=== PATIENT | male | born 1985 | race African-American/Black ===

== ENCOUNTER 2018-11-26 14:04 | Emergency (ER) | payer OTHER ==
[2014-07-06 19:58] VITALS: BP 154/84
[~2018-11-26] VITALS: Ht 182.9 cm; Wt 82.1 kg
--- NOTE | 2018-11-26 15:40 | RAD ---
3 view study of the left ankle Clinical indications: Medial left ankle pain. Heel pain. Twisting injury last PM. FINDINGS: No acute fracture or dislocation or lytic process is seen. The mortise ankle joint is intact. No plantar spur of the calcaneus is seen. Boehler's angle of the calcaneus is maintained. IMPRESSION: No acute fracture. Electronically signed by: Kang Childress MD (11/26/2018 3:37 PM) [id number]
--- NOTE | 2018-11-26 16:35 | PHYS DOC ---
Past Medical History Past Medical History: No Pertinent History Past Surgical History: Appendectomy Additional Information: 0.25 PPD Alcohol Use: None Drug Use: None Adult General Chief Complaint Chief Complaint: ANKLE PROBLEM HPI HPI 33-year-old male presents to ER for complaints of left ankle injury which happened last night at work. Patient states his boot got caught causing him to twist his left ankle. He denies falling or having any other injury. He denies any OTC meds today for pain. He reports he has been ambulatory with weight bearing on lt lower extremity but does have increased pain with walking. Review of Systems Review of Systems GI: Denies nausea, vomiting Musculoskeletal: Reports lt ankle pain Integument: Denies abrasions/bruising Neurologic: Denies focal weakness or sensory changes [] All other systems were reviewed and found to be within normal limits, except as documented in this note. Allergies Allergies Allergies Coded Allergies Type Severity Reaction Last Updated Verified No Known Drug Allergies 04/13/14 No Physical Exam Physical Exam Constitutional: Well developed, well nourished, no acute distress, non-toxic appearance. [] HENT: Normocephalic, atraumatic, oropharynx moist Eyes: Pupils equal, conjunctiva normal, no discharge. [] Neck: Normal range of motion, no tenderness, supple, no stridor. [] Cardiovascular: Heart rate regular Lungs & Thorax: Resp. equal/nonlabored Skin: Warm, dry Back: Full ROM Extremities: No cyanosis, no clubbing, ROM intact in upper/rt lower extremities, no edema. 2+ bilat. dorsalis pedis/posterior tibial. Tender lateral malleolus with decreased range of motion- soft tissue swelling without ecchymosis. No medial malleolus tenderness. No palpable deformity. No tenderness and left calcaneus or foot. No calf tenderness bilateral with size symmetric Neurologic: Alert and oriented X 3, normal motor function, normal sensory function, no focal deficits noted. [] Psychologic: Affect normal, judgement normal, mood normal. [] Current Patient Data Vital Signs Vital Signs Date Time Temp Pulse Resp B/P (MAP) Pulse Ox O2 Delivery O2 Flow Rate FiO2 11/26/18 14:10 97.6 55 16 165/83 (110) 99 Room Air 97.6 EKG EKG [] Radiology/Procedures Radiology/Procedures PROCEDURE: ANKLE LEFT 3V 3 view study of the left ankle Clinical indications: Medial left ankle pain. Heel pain. Twisting injury last PM. FINDINGS: No acute fracture or dislocation or lytic process is seen. The mortise ankle joint is intact. No plantar spur of the calcaneus is seen. Boehler's angle of the calcaneus is maintained. IMPRESSION: No acute fracture. Electronically signed by: Eduardo Childress MD (11/26/2018 3:37 PM) [place] [id number] DICTATED and SIGNED BY: EDUARDO CHILDRESS MD DATE: 11/26/18 1537 Course & Med Decision Making Course & Med Decision Making Pertinent Labs and Imaging studies reviewed. (See chart for details) Patient was evaluated in the ER for complaints of left ankle injury. X-rays were obtained with no acute findings. Discussed x-ray results with patient along with plans for Adonis wrap and air splint. Patient was offered crutches but states he feels he can walk without any assistive devices. Patient remained PMS intact in left lower extremity. At time of discharge discussion patient was in no visible distress.Education provided on signs and symptoms to return to ER. Discharge instructions were discussed. Patient to follow-up with primary care physician and or orthopedic doctor if symptoms persist or with any concerns. Patient was offered dose of Tylenol and/or ibuprofen while in the ER preferred an ice pack without any medications. Dragon Disclaimer Dragon Disclaimer This electronic medical record was generated, in whole or in part, using a voice recognition dictation system. Departure Departure Impression: Primary Impression: Left ankle injury Disposition: 01 HOME, SELF-CARE Condition: STABLE Referrals: NO PCP (PCP) KELLY CORRALES MD Patient Instructions: Ankle Pain, Elastic Bandage and RICE Additional Instructions: Tylenol and/or ibuprofen as needed for pain as directed on container. Wear the Adonis wrap and air splint for support of your ankle. If you continue having problems follow-up with an orthopedic doctor. ALEJANDRO OLIVO APRN Nov 26, 2018 16:34
== END 2018-11-26 16:50 | disposition home or self-care (01) ==
LOC: ER 14:04
DX: S99.912A Unspecified injury of left ankle, initial encounter (principal); F17.200 Nicotine dependence, unspecified, uncomplicated; X50.9XXA Other and unspecified overexertion or strenuous movements or postures, initial encounter; Y93.89 Activity, other specified; Y92.89 Other specified places as the place of occurrence of the external cause; Y99.8 Other external cause status
CPT/HCPCS: 73610; 99284